=== PATIENT | female | born 1955 | race Caucasian/White ===

== ENCOUNTER → 2016-08-15 | Outpatient (CLI) | payer BC ==
--- OUTSIDE RECORDS SUMMARY | 2016-08-15 11:06 | XMS REPORT | Continuity of Care Document ---
Author [facility] Address Unknown Phone Unavailable Care Team Providers Care Outdoor Pursuits Instructor Name Role Phone Vikram Childs PCP [phone] Source Comments Some departments are not documenting in the electronic medical record. If you do not see the information that you expected, contact Release of Information in the Health Information Management department at [phone] for further assistance in locating additional records.[facility] Active Allergies and Adverse Reactions Not on File Current Medications Not on file Active Problems Problem Noted Date Pain in joint, lower leg 10/19/2007 Social History Tobacco Use Types Packs/Day Years Used Date Never Assessed Plan of Care Health Maintenance Due Date Last Done Comments Physical (Comprehensive) 1963 Exam Pertussis Vaccine 1967 Tetanus Vaccine 1973 Cervical Cancer Screening 1977 Breast Cancer Screening 1996 Colorectal Cancer 2006 Screening Influenza Vaccine 03/14/2016 Results from Last 3 Months Not on file
--- NOTE | 2016-08-15 16:40 | Diagnostic Imaging Report ---
Examination: DEXA scan. INDICATION: Osteopenia TECHNIQUE: Bone mineral density estimated based on dual energy radiography over the lumbar spine and femoral necks, was performed. FINDINGS: The lumbar spine T-score is -2.8. This is a 5.3% decreased density measurement compared to 08/06/2013 exam. The T score for the left femoral neck is 0.1 and on the right is -0.1. This is 3.6% decreased density measurement compared to 2014 exam. IMPRESSION: Osteoporosis. Dictated by: Dictated on workstation # [id number]
--- NOTE | 2016-08-15 17:17 | Diagnostic Imaging Report ---
Bilateral screening mammogram. The current study was also evaluated with a Computer Aided Detection (CAD) system. INDICATION: Screening. No current complaints stated on the questionnaire. COMPARISON: 06/26/2015. FINDINGS: The breasts are composed of heterogeneously dense parenchyma which may decrease mammographic sensitivity. There is a biopsy clip seen in the right breast. Stable somewhat nodular pattern of the parenchyma is seen with no developing mass, architectural distortion, or suspicious cluster of calcification. Allowing for technique and positional differences, no suspicious change is seen. IMPRESSION: Dense breasts with no definite change. ACR BI-RADS Category 2: Benign findings. Result letter will be mailed to the patient. Note: At least 10% of breast cancer is not imaged by mammography. Dictated by: Dictated on workstation # [id number]
== END ==
LOC: RAD 11:00
PROVIDERS: ATTEND Obstetrics & Gynecology
DX: Z12.31 Encounter for screening mammogram for malignant neoplasm of breast (principal); M81.0 Age-related osteoporosis without current pathological fracture
CPT/HCPCS: 77067; 77080

== ENCOUNTER → 2017-08-21 | Outpatient (CLI) | payer BC ==
--- NOTE | 2017-08-21 17:57 | Diagnostic Imaging Report ---
INDICATION: Screening mammogram. COMPARISON: 08/15/2016. EXAMINATION: Digital screening mammography was obtained of bilateral breasts with a Computer Aided Detection (CAD) system and three-dimensional tomosynthesis. FINDINGS: Breast tissue is heterogeneously dense but stable. There is no mass or suspicious calcification. There is a biopsy marker clip in the right breast. IMPRESSION: Stable screening mammogram. No malignancy. ACR BI-RADS Category 1: Negative. Result letter will be mailed to the patient. Note: At least 10% of breast cancer is not imaged by mammography. Dictated by: Dictated on workstation # [id number]
== END ==
LOC: RAD 09:20
PROVIDERS: ATTEND Obstetrics & Gynecology
DX: Z12.31 Encounter for screening mammogram for malignant neoplasm of breast (principal); M81.0 Age-related osteoporosis without current pathological fracture
CPT/HCPCS: 77067

== ENCOUNTER 2018-08-10 05:38 | Outpatient (CLI) | payer BC ==
[~2018-08-10] VITALS: Ht 158.8 cm; Wt 58.1 kg
[2018-08-10] MEDS ORDERED: RALO60TA12 PO (15:54)
[2018-08-10] MEDS ORDERED: MV-M1TAB57 PO (16:02)
[2018-08-10] MEDS ORDERED: OMG1KC PO (16:02)
[2018-08-10] MEDS ORDERED: ASCO1CAP4 PO (16:02)
[2018-08-10] MEDS ORDERED: GARL600T PO (16:02)
[2018-08-10] MEDS ORDERED: CALC-50 PO (16:02)
[2018-08-10] MEDS ORDERED: LACT1CAP39 PO (16:02)
== END 2018-08-10 16:02 | disposition home or self-care (01) ==
LOC: PREOP 05:38
PROVIDERS: ATTEND Surgery
DX: Z01.818 Encounter for other preprocedural examination (principal)

== ENCOUNTER 2018-08-17 07:10 | Day surgery (SDC) | payer BC ==
[~2018-08-17] VITALS: Ht 158.8 cm; Wt 58.1 kg
[~2018-08-17 07:10] MED LIST: ASCO1CAP4 PO; CALC-50 PO; GARL600T PO; LACT1CAP39 PO; MV-M1TAB57 PO; OMG1KC PO; RALO60TA12 PO
--- OUTSIDE RECORDS SUMMARY | 2018-08-17 07:14 | XMS REPORT | Clinical Summary ---
Author Author [facility] Organization [facility] Address Unknown Phone Unavailable Care Team Providers Care Senior Software Qa Engineer Name Role Phone Vikram Childs MD PCP Source Comments Some departments are not documenting in the electronic medical record. If you do not see the information that you expected, contact Release of Information in the Health Information Management department at [phone] for further assistance in locating additional records.[facility] Allergies Not on File Medications Not on file Active Problems Problem Noted Date Pain in joint, lower leg 10/19/2007 Social History Date Tobacco Use Types Packs/Day Years Used Never Assessed Sex Assigned at Date Recorded Not on file Industry Job Start Date Occupation Not on file Not on file Not on file Travel End Travel History Travel Start No recent travel history available. Last Filed Vital Signs Not on file Plan of Treatment Health Maintenance Due Date Last Done Comments HEPATITIS C SCREENING 1956 PHYSICAL (COMPREHENSIVE) 1963 EXAM HIV SCREENING 1971 DTAP/TDAP VACCINES (1 - 1974 Tdap) CERVICAL CANCER SCREENING 1986 BREAST CANCER SCREENING 1996 COLORECTAL CANCER 2006 SCREENING SHINGLES RECOMBINANT 2006 VACCINE (1 of 2) INFLUENZA VACCINE 02/11/2018 Results Not on filefrom Last 3 Months
--- OUTSIDE RECORDS SUMMARY | 2018-08-17 07:15 | XMS REPORT | CCD ---
Author Author Natasha Medrano MD, [facility] Address [address] [place] [address] Phone Care Team Providers Care Sales Inspector Name Role Phone Beverly Cheng PP Unavailable CCM Unavailable Summary Purpose Interface Exchange Insurance Providers Payer name Policy type / Coverage type Covered republican ID Effective Begin Date Effective End Date Blue Cross [facility] [id number] Unknown Unknown Family history Daughter Diagnosis Age At Onset No Known Diseases N/A Sister Diagnosis Age At Onset No Known Diseases N/A Father Diagnosis Age At Onset Hypertension Unknown Son Diagnosis Age At Onset No Known Diseases N/A Mother Diagnosis Age At Onset Alzheimer's Disease Unknown Hyperlipidemia Unknown Sister Diagnosis Age At Onset No Known Diseases N/A Sister Diagnosis Age At Onset No Known Diseases N/A Social History Social History Element Codes Description Effective Dates Marital status Unknown 01/31/2014 Employment Unknown Currently employed 01/31/[address]: 223881584 Never smoker 01/31/[address]: 655277304 Never drinks alcohol 01/31/2014 Has the patient ever used illegal drugs? 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 ICD-10: K59.1 Active 07/17/2018 Unknown Acute upper respiratory infection, unspecified ICD-9: 465.9 ICD-10: J06.9 Active 12/05/2016 Unknown Cough ICD-9: 786.2 ICD-10: R05 Active 12/05/2016 Unknown Other acute sinusitis ICD-9: 461.8 ICD-10: J01.80 Active 03/24/2016 Unknown Other allergic rhinitis ICD-9: 477.8 ICD-10: J30.89 Active 03/24/2016 Unknown Bitten or stung by nonvenomous insect and other nonvenomous arthropods, initial encounter ICD-9: 919.4 ICD-10: W57.XXXA Active 10/22/2015 Unknown Rash and other nonspecific skin eruption ICD-9: 782.1 ICD-10: R21 Active 10/22/2015 Unknown Bilateral primary osteoarthritis of knee ICD-9: 715.96 ICD-10: M17.0 Active 10/15/2015 Unknown Primary insomnia ICD-9 : 307.42 ICD-10: F51.01 Active 10/15/2015 Unknown osteopenia Unknown Active 01/31/2014 Unknown Osteoporosis ICD-9: 733.00 Active 01/31/2014 Unknown Right knee pain ICD-9 : 719.46 Active 01/31/2014 Unknown Problems Condition Codes Effective Dates Condition Status Hypothryroidism Unknown 07/23/2018 Active Hypothyroidism, unspecified ICD-9: 244.9 ICD-10: E03.9 07/23/2018 Active Functional diarrhea ICD-9: 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 ICD-10: K59.1 07/17/2018 Active Acute upper respiratory infection, unspecified ICD-9: 465.9 ICD-10: J06.9 12/05/2016 Active Cough ICD-9: 786.2 ICD-10: R05 12/05/2016 Active Other acute sinusitis ICD-9: 461.8 ICD-10: J01.80 03/24/2016 Active Other allergic rhinitis ICD-9: 477.8 ICD-10: J30.89 03/24/2016 Active Bitten or stung by nonvenomous insect and other nonvenomous arthropods, initial encounter ICD-9: 919.4 ICD-10: W57.XXXA 10/22/2015 Active Rash and other nonspecific skin eruption ICD-9: 782.1 ICD-10: R21 10/22/2015 Active Bilateral primary osteoarthritis of knee ICD-9: 715.96 ICD-10: M17.0 10/15/2015 Active Primary insomnia ICD-9 : 307.42 ICD-10: F51.01 10/15/2015 Active osteopenia Unknown 01/31/2014 Active Osteoporosis ICD-9: 733.00 01/31/2014 Active Right knee pain ICD-9 : 719.46 01/31/2014 Active Medications Medication Codes Instructions Start Date Stop Date Status Fill Instructions Zithromax Z-Eduard 250 mg tablet RxNorm: 640957 1 Tablet(s) PO UD 12/05/2016 12/09/2016 Inactive zpack Kenalog 40 mg/mL suspension for injection RxNorm: 4289045 1 Milliliter(s) Inj 12/05/2016 12/05/2016 Inactive Zithromax Z-Eduard 250 mg tablet RxNorm: 509106 1 Tablet(s) PO UD 03/25/2016 12/04/2016 Inactive Kenalog 40 mg/mL suspension for injection RxNorm: 0446010 Milliliter(s) Inj 03/25/2016 03/25/2016 Inactive doxycycline hyclate 100 mg tablet RxNorm: 117918 1 Tablet(s) PO BID 10/23/2015 11/01/2015 Inactive Voltaren 1 % topical gel RxNorm: 832564 4 Gram(s) TOP QID 10/1902/16/2016 Inactive trazodone 50 mg tablet RxNorm: 206611 1 Tablet(s) PO QHS 201511/14/2015 Inactive Voltaren 1 % topical gel RxNorm: 277639 4 Gram(s) TOP QID 10/1510/19/2015 Inactive Osteo Bi-Flex oral RxNorm: 7567773 oral No Start Date Active Symbicort 160 mcg-4.5 mcg/actuation HFA aerosol inhaler RxNorm: 0320543 1 INH as needed No Start Date Active trospium ER 60 mg capsule,extended release 24 hr RxNorm: 175058 1 Capsule(s) PO daily No Start Date Active Fish Oil 1,000 mg capsule RxNorm: 1400 Capsule(s) PO daily No Start Date Active calcium citrate-ergocalciferol (vitamin D2) 1,500 mg-200 unit tablet RxNorm: 9770825 2 Tablet(s) PO BID No Start Date Active garlic 1,000 mg capsule RxNorm: 629650 2 Capsule(s) PO daily No Start Date Active Cathy Allergy 180 mg tablet RxNorm: 756148 1 Tablet(s) PO daily No Start Date Active Estring 2 mg vaginal RxNorm: 994834 1 ring VAG q 3 month No Start Date Active melatonin 5 mg capsule RxNorm: 768966 3 Capsule(s) PO daily No Start Date 10/15/2015 Inactive Atelvia 35 mg tablet,delayed release RxNorm: 5908522 1 Tablet(s) PO QW No Start Date 10/15/2015 Inactive Medication Administered Medication Codes Instructions Start Date Status Kenalog 40 mg/mL suspension for injection RxNorm: 0911889 1Milliliter 12/05/2016 No longer Active Kenalog 40 mg/mL suspension for injection RxNorm: 5707471 Milliliter 03/25/2016 No longer Active Immunizations Vaccine Codes Date Status Influenza CVX: 141 06/01/2013 completed Assessments Condition Codes Effective Dates Hypothyroidism, unspecified ICD-10: E03.9 ICD-9: 244.9 07/23/2018 Functional diarrhea ICD-10: K59.1 ICD-9: 564.5 07/17/2018 Acute upper respiratory infection, unspecified ICD-10: J06.9 ICD-9: 465.9 12/05/2016 Cough ICD-10: R05 ICD-9: 786.2 12/05/2016 Other acute sinusitis ICD-10: J01.80 ICD-9: 461.8 03/25/2016 Other allergic rhinitis ICD-10: J30.89 ICD-9: 477.8 03/25/2016 Rash and other nonspecific skin eruption ICD-10: R21 ICD-9: 782.1 10/23/2015 Bitten or stung by nonvenomous insect and other nonvenomous arthropods, initial encounter ICD-10: W57.XXXA ICD-9: 919.4 10/23/2015 Primary insomnia ICD-10: F51.01 ICD-9: 307.42 10/16/2015 Bilateral primary osteoarthritis of knee ICD-10: M17.0 ICD-9: 715.96 10/16/2015 Right knee pain ICD-9: 719.46 01/31/2014 Osteoporosis ICD-9: 733.00 01/31/2014 Reason For Visit Reason For Visit Effective Dates Notes diarrhea 07/17/2018 hoarseness 12/05/2016 sinus congestion 03/25/2016 arthropod bite 10/23/2015 insomnia 10/16/2015 knee pain 01/31/2014 Results Observation Observation Code Item Item Code Result Date Cbc With Differential Ord2 WBC 4.10 K/ul 07/20/2018 Cbc With Differential Ord2 RBC 4.57 M/ul 07/20/2018 Cbc With Differential Ord2 HGB 13.4 g/dl 07/20/2018 Cbc With Differential Ord2 HCT 40.3 % 07/20/2018 Cbc With Differential Ord2 Neut% 51.4 % 07/20/2018 Cbc With Differential Ord2 MCV 88.2 fl 07/20/2018 Cbc With Differential Ord2 Lymph% 33.9 % 07/20/2018 Cbc With Differential Ord2 MCH 29.3 pg 07/20/2018 Cbc With Differential Ord2 Republic% 9.3 % 07/20/2018 Cbc With Differential Ord2 MCHC 33.3 pg 07/20/2018 Cbc With Differential Ord2 Eos% 4.4 % 07/20/2018 Cbc With Differential Ord2 PLT 229 K/ul 07/20/2018 Cbc With Differential Ord2 Baso% 1.0 % 07/20/2018 Cbc With Differential Ord2 RDW 12.9 % 07/20/2018 Cbc With Differential Ord2 Neut ABS# 2.11 K/ul 07/20/2018 Cbc With Differential Ord2 Lymph ABS# 1.39 K/ul 07/20/2018 Cbc With Differential Ord2 Republic ABS# 0.4 K/ul 07/20/2018 Cbc With Differential Ord2 Eos ABS# 0.2 K/ul 07/20/2018 Cbc With Differential Ord2 Baso ABS# 0.0 K/ul 07/20/2018 Tsh Ord6 TSH (3rd IS) 0.44 uIU/mL 07/20/2018 Comp Metabolic Yon063 NA 142 mEq/L 07/20/2018 Comp Metabolic Nmj546 K 4.1 mEq/L 07/20/2018 Comp Metabolic Ggz132 CL 106 mEq/L 07/20/2018 Comp Metabolic Htj614 CO2 29.0 mEq/L 07/20/2018 Comp Metabolic Pyn333 ANION GAP 11 07/20/2018 Comp Metabolic Pbd496 GLUCOSE 95 mg/dL 07/20/2018 Comp Metabolic Dqs556 Creat 0.7 mg/dL 07/20/2018 Comp Metabolic Zhf733 eGFR 89 ml/min/1.73m2 07/20/2018 Comp Metabolic Kwf526 BUN 18 mg/dL 07/20/2018 Comp Metabolic Rqj767 B/C Ratio 25.4 Ratio 07/20/2018 Comp Metabolic Icn917 CALCIUM 9.3 mg/dL 07/20/2018 Comp Metabolic Scz791 ALK PHOS 45 U/L 07/20/2018 Comp Metabolic Iel350 AST(SGOT) 18 U/L 07/20/2018 Comp Metabolic Skp882 ALT(SGPT) 13 U/L 07/20/2018 Comp Metabolic Gts075 BILI T 0.5 mg/dL 07/20/2018 Comp Metabolic Pyd218 ALBUMIN 4.1 g/dL 07/20/2018 Comp Metabolic Mqe907 TPRO 6.1 g/dL 07/20/2018 Comp Metabolic Xpe966 GLOB 2.0 g/dL 07/20/2018 Comp Metabolic Uij572 A/G Ratio 2.1 Ratio 07/20/2018 Comp Metabolic Ucc797 Osmo 285 mOsmo 07/20/2018 Lipid Ord30 CHOL 176 mg/dL 07/20/2018 Lipid Ord30 HDL 58.0 mg/dl 07/20/2018 Lipid Ord30 TRIG 56 mg/dL 07/20/2018 Lipid Ord30 LDL 107 mg/dL 07/20/2018 Lipid Ord30 C/HDL 3.0 Ratio 07/20/2018 Ehrlichia Chaffeensis Antibody Igg 631206 EHRLICHIA CHAFFEENSIS IGG <1:64 10/28/2015 Ehrlichia Chaffeensis Antibody Igm [id number] EHRLICHIA CHAFFEENSIS IGM < 1:16 10/28/2015 Lymes Disease Total Antibodies With Western Blot Reflex [id number] B. BURGDORFERI, IGG/IGM 0.08 LI 10/28/2015 Lymes Disease Total Antibodies With Western Blot Reflex [id number] 10/28/2015 [place] Spotted Fever Igg/Igm [id number] [place] SPOTTED FEVER IGM EIA . 10/27/2015 [place] Spotted Fever Igg/Igm 744474 RMSF, IGM 0.30 index 10/27/2015 [place] Spotted Fever Igg/Igm [id number] [place] SPOTTED FEVER IGG EIA FLEX . 10/27/2015 [place] Spotted Fever Igg/Igm 865938 RMSF, IGG SCREEN-FLEX Negative 10/27/2015 Review of Systems System Result Effective Dates Constitutional No recent illness 2018 Constitutional No anorexia 07/17/2018 Constitutional No night sweats 2018 Constitutional No chills 07/17/2018 Constitutional No diaphoresis 07/17/2018 Constitutional No fatigue 07/17/2018 Constitutional No fever 07/17/2018 Constitutional No insomnia 07/17/2018 Constitutional No malaise 07/17/2018 Constitutional No weight loss 07/17/2018 Constitutional No weight gain 07/17/2018 Psychiatric No anxiety 07/17/2018 Psychiatric No depression 07/17/2018 Endocrine No cold sensitivity 07/17/2018 Endocrine No hair loss 07/17/2018 Hematologic/Lymphatic No abnormal bleeding and bruising 07/17/2018 Neurologic No alteration of consciousness 07/17/2018 Dermatologic No rash 07/17/2018 Musculoskeletal joint complaint 2018 Genitourinary/Nephrology No dysuria 07/17 Gastrointestinal No abdominal pain 2018 Gastrointestinal No anorexia 07/17/2018 Gastrointestinal diarrhea 07/17/2018 Gastrointestinal No gas and bloating 10/2018 Gastrointestinal No gastroesophageal reflux 07/17/2018 Gastrointestinal No vomiting 07/17/2018 Gastrointestinal No nausea 07/17/2018 Respiratory No cough 07/17/2018 Cardiovascular No chest pain/pressure 10/2018 Ears/Nose/Throat/Neck No dizziness 2018 Ears/Nose/Throat/Neck No headache 2018 Eyes No eye discharge 07/17/2018 Eyes No eye erythema 07/17/2018 Constitutional recent illness 12/05/2016 Constitutional No anorexia 12/05/2016 Constitutional No night sweats 2016 Constitutional No chills 12/05/2016 Constitutional No diaphoresis 12/05/2016 Constitutional No fatigue 12/05/2016 Constitutional No fever 12/05/2016 Constitutional No insomnia 12/05/2016 Constitutional No malaise 12/05/2016 Constitutional No weight loss 12/05/2016 Constitutional No weight gain 12/05/2016 Eyes No eye discharge 12/05/2016 Eyes No eye erythema 12/05/2016 Ears/Nose/Throat/Neck No dizziness 2016 Ears/Nose/Throat/Neck No headache 2016 Ears/Nose/Throat/Neck nasal allergies Ears/Nose/Throat/Neck nasal discharge Ears/Nose/Throat/Neck No otalgia 2016 Ears/Nose/Throat/Neck No sinus congestion 12/05/2016 Ears/Nose/Throat/Neck hoarseness 2016 Cardiovascular No chest pain/pressure Respiratory productive sputum 12/05/2016 Respiratory cough 12/05/2016 Respiratory chest tightness 12/05/2016 Gastrointestinal No abdominal pain 2016 Gastrointestinal No constipation 2016 Gastrointestinal No diarrhea 12/05/2016 Genitourinary/Nephrology No dysuria 12/05 Musculoskeletal No joint complaint 2016 Dermatologic No rash 12/05/2016 Dermatologic No sores 12/05/2016 Neurologic No alteration of consciousness 12/05/2016 Constitutional No diaphoresis 03/25/2016 Constitutional No fever 03/25/2016 Eyes No eye discharge 03/25/2016 Eyes No eye erythema 03/25/2016 Ears/Nose/Throat/Neck nasal allergies 06/2016 Ears/Nose/Throat/Neck nasal discharge 06/2016 Cardiovascular No chest pain/pressure 06/2016 Cardiovascular No dyspnea 03/25/2016 Respiratory No productive sputum 2015 Respiratory cough 03/25/2016 Gastrointestinal No abdominal pain 2015 Gastrointestinal No constipation 2015 Gastrointestinal No diarrhea 03/25/2016 Musculoskeletal No joint complaint 2015 Neurologic No alteration of consciousness 03/25/2016 Dermatologic No rash 03/25/2016 Constitutional recent illness 03/25/2016 Constitutional No chills 03/25/2016 Ears/Nose/Throat/Neck sinus congestion Ears/Nose/Throat/Neck postnasal drip 06/2016 Gastrointestinal No nausea 03/25/2016 Gastrointestinal No vomiting 03/25/2016 Neurologic No mental status change 2015 Constitutional No chills 10/23/2015 Constitutional No diaphoresis 10/23/2015 Constitutional No fatigue 10/23/2015 Constitutional No fever 10/23/2015 Constitutional No malaise 10/23/2015 Eyes No eye discharge 10/23/2015 Eyes No eye erythema 10/23/2015 Cardiovascular No chest pain/pressure 05/2016 Cardiovascular No dyspnea 10/23/2015 Respiratory No productive sputum 2015 Respiratory No cough 10/23/2015 Gastrointestinal No abdominal pain 2015 Gastrointestinal No constipation 2015 Gastrointestinal No diarrhea 10/23/2015 Musculoskeletal No joint complaint 2015 Neurologic No alteration of consciousness 10/23/2015 Psychiatric anxiety 10/23/2015 Psychiatric depression 10/23/2015 Ears/Nose/Throat/Neck No nasal discharge 10/23/2015 Ears/Nose/Throat/Neck No nasal allergies 10/23/2015 Dermatologic rash 10/23/2015 Constitutional No recent illness 2015 Constitutional No anorexia 10/16/2015 Constitutional No chills 10/16/2015 Constitutional No night sweats 2015 Constitutional No diaphoresis 10/16/2015 Constitutional No fatigue 10/16/2015 Constitutional No fever 10/16/2015 Constitutional insomnia 10/16/2015 Constitutional No malaise 10/16/2015 Constitutional No weight loss 10/16/2015 Constitutional No weight gain 10/16/2015 Psychiatric anxiety 10/16/2015 Psychiatric depression 10/16/2015 Eyes No eye discharge 10/16/2015 Eyes No eye erythema 10/16/2015 Ears/Nose/Throat/Neck No dizziness 2015 Ears/Nose/Throat/Neck No headache 2015 Cardiovascular No chest pain/pressure 10/2015 Cardiovascular No dyspnea 10/16/2015 Respiratory No productive sputum 2015 Respiratory No cough 10/16/2015 Gastrointestinal No abdominal pain 2015 Gastrointestinal No constipation 2015 Gastrointestinal No diarrhea 10/16/2015 Genitourinary/Nephrology No dysuria 10/15 Musculoskeletal No joint complaint 2015 Dermatologic No rash 10/16/2015 Neurologic No alteration of consciousness 10/16/2015 Constitutional No recent illness 2013 Musculoskeletal joint complaint 2013 Musculoskeletal osteoporosis 01/31/2014 Musculoskeletal arthralgia(s) 01/31/2014 Constitutional No anorexia 01/31/2014 Constitutional No night sweats 2013 Constitutional No chills 01/31/2014 Constitutional No diaphoresis 01/31/2014 Constitutional No fatigue 01/31/2014 Constitutional No insomnia 01/31/2014 Constitutional No fever 01/31/2014 Constitutional No malaise 01/31/2014 Constitutional No weight loss 01/31/2014 Constitutional No weight gain 01/31/2014 Eyes No eye discharge 01/31/2014 Eyes No eye erythema 01/31/2014 Ears/Nose/Throat/Neck No dizziness 2013 Ears/Nose/Throat/Neck No headache 2013 Ears/Nose/Throat/Neck nasal allergies Cardiovascular No chest pain/pressure Cardiovascular No dyspnea 01/31/2014 Cardiovascular No edema 01/31/2014 Respiratory No productive sputum 2013 Respiratory No chest congestion 2013 Respiratory No cough 01/31/2014 Gastrointestinal No abdominal pain 2013 Gastrointestinal No constipation 2013 Gastrointestinal No diarrhea 01/31/2014 Genitourinary/Nephrology No dysuria 01/31 Dermatologic No rash 01/31/2014 Dermatologic No sores 01/31/2014 Dermatologic No mole change 01/31/2014 Neurologic No alteration of consciousness 01/31/2014 Psychiatric No anxiety 01/31/2014 Psychiatric No depression 01/31/2014 Hematologic/Lymphatic No abnormal ecchymoses 01/31/2014 Endocrine No dry or coarse skin 2013 Physical Exam Exam Name System Name Item Name Status Result Effective Dates Notes Full Exam - General 1994 Constitutional general appearance Overall: well developed 07/17/2018 None Full Exam - General 1994 Constitutional general appearance Overall: in no acute distress 07/17/2018 None Full Exam - General 1994 Constitutional general appearance Overall: well nourished 07/17/2018 None Full Exam - General 1994 Eyes conjunctiva /eyelids Overall: conjunctiva clear 07/17/2018 None Full Exam - General 1994 Eyes conjunctiva /eyelids Overall: cornea clear 07/17/2018 None Full Exam - General 1994 Eyes conjunctiva /eyelids Overall: eyelids normal 07/17/2018 None Full Exam - General 1994 Eyes pupils and irises Overall: pupils equal, round, reactive to light and accomodation 07/17/2018 None Full Exam - General 1994 Ears/Nose/Throat otoscopic exam Overall: external auditory canals clear 07/17/2018 None Full Exam - General 1994 Ears/Nose/Throat otoscopic exam Overall: tympanic membranes clear 07/17/2018 None Full Exam - General 1994 Ears/Nose/Throat oral cavity/pharynx/larynx Overall: oral mucosa clear 07/17/2018 None Full Exam - General 1995 Ears/Nose/Throat oral cavity/pharynx/larynx Overall: oropharyngeal mucosa clear 07/17/2018 None Full Exam - General 1994 Ears/Nose/Throat oral cavity/pharynx/larynx Overall: no masses 07/17/2018 None Full Exam - General 1994 Respiratory auscultation Overall: breath sounds clear bilaterally 07/17/2018 None Full Exam - General 1994 Respiratory respiratory effort/rhythm Overall: no retractions 07/17/2018 None Full Exam - General 1994 Respiratory respiratory effort/rhythm Overall: normal rate 07/17/2018 None Full Exam - General 1994 Cardiovascular extremities Overall: no clubbing 07/17/2018 None Full Exam - General 1994 Abdomen abdominal exam Overall: no tenderness 07/17/2018 None Full Exam - General 1994 Abdomen abdominal exam Overall: normal bowel sounds 07/17/2018 None Full Exam - General 1994 Integument inspection of skin Overall: no rash, lesions 07/17/2018 None Full Exam - General 1994 Neurologic deep tendon reflexes Overall: deep tendon reflexes intact 07/17/2018 None Full Exam - General 1994 Neurologic cranial nerves Overall: crainial nerves 2 - 12 grossly intact 07/17/2018 None Full Exam - General 1994 Psychiatric orientation/consciousness Overall: oriented to person, place and time 07/17/2018 None Full Exam - Cardiology Extremities digits and nails Overall: no clubbing 07/17/2018 None Full Exam - Cardiology Extremities digits and nails Overall: digits benign 07/17/2018 None Full Exam - General 1994 Constitutional general appearance Overall: well developed 12/05/2016 None Full Exam - General 1994 Constitutional general appearance Overall: in no acute distress 12/05/2016 None Full Exam - General 1994 Constitutional general appearance Overall: well nourished 12/05/2016 None Full Exam - General 1994 Eyes conjunctiva /eyelids Overall: conjunctiva clear 12/05/2016 None Full Exam - General 1994 Eyes conjunctiva /eyelids Overall: cornea clear 12/05/2016 None Full Exam - General 1994 Eyes conjunctiva /eyelids Overall: eyelids normal 12/05/2016 None Full Exam - General 1994 Eyes pupils and irises Overall: pupils equal, round, reactive to light and accomodation 12/05/2016 None Full Exam - General 1994 Ears/Nose/Throat otoscopic exam Overall: external auditory canals clear 12/05/2016 None Full Exam - General 1994 Ears/Nose/Throat otoscopic exam Tympanic membrane: air- fluid level 12/05/2016 None Full Exam - General 1994 Ears/Nose/Throat lips/teeth/gingiva Overall: benign lips 12/05/2016 None Full Exam - General 1994 Ears/Nose/Throat oral cavity/pharynx/larynx Overall: oral mucosa clear 12/05/2016 None Full Exam - General 1994 Ears/Nose/Throat oral cavity/pharynx/larynx Posterior Pharynx: clear post nasal drainage 12/05/2016 None Full Exam - General 1994 Respiratory auscultation Overall: breath sounds clear bilaterally 12/05/2016 None Full Exam - General 1994 Respiratory respiratory effort/rhythm Overall: no retractions 12/05/2016 None Full Exam - General 1994 Respiratory respiratory effort/rhythm Overall: normal rate 12/05/2016 None Full Exam - General 1994 Cardiovascular auscultation of heart Overall: regular rate 12/05/2016 None Full Exam - General 1994 Cardiovascular auscultation of heart Overall: normal heart sounds 12/05/2016 None Full Exam - General 1994 Lymphatic neck nodes Overall: anterior cervical chain benign 12/05/2016 None Full Exam - General 1994 Lymphatic neck nodes Overall: posterior cervical chain benign 12/05/2016 None Full Exam - General 1994 Musculoskeletal gait and station Overall: normal gait 12/05/2016 None Full Exam - General 1994 Musculoskeletal gait and station Overall: normal station 12/05/2016 None Full Exam - General 1994 Musculoskeletal head and neck Overall: head atraumatic 12/05/2016 None Full Exam - General 1994 Neurologic cranial nerves Overall: crainial nerves 2 - 12 grossly intact 12/05/2016 None Full Exam - General 1994 Psychiatric orientation/consciousness Overall: oriented to person, place and time 12/05/2016 None Full Exam - General 1994 Psychiatric mood and affect Overall: normal mood and affect 12/05/2016 None Full Exam - General 1994 Psychiatric appearance Overall: well-groomed, good eye contact 12/05/2016 None Full Exam - General 1994 Psychiatric speech Overall: normal quality, no aphasia 12/05/2016 None Full Exam - General 1994 Psychiatric speech Overall: normal quality, quantity, rate 12/05/2016 None Full Exam - General 1994 Constitutional general appearance Overall: well developed 03/25/2016 None Full Exam - General 1994 Constitutional general appearance Overall: in no acute distress 03/25/2016 None Full Exam - General 1994 Constitutional general appearance Overall: well nourished 03/25/2016 None Full Exam - General 1994 Eyes conjunctiva /eyelids Overall: conjunctiva clear 03/25/2016 None Full Exam - General 1994 Eyes conjunctiva /eyelids Overall: cornea clear 03/25/2016 None Full Exam - General 1994 Eyes conjunctiva /eyelids Overall: eyelids normal 03/25/2016 None Full Exam - General 1994 Eyes pupils and irises Overall: pupils equal, round, reactive to light and accomodation 03/25/2016 None Full Exam - General 1994 Ears/Nose/Throat lips/teeth/gingiva Overall: benign lips 03/25/2016 None Full Exam - General 1994 Ears/Nose/Throat oral cavity/pharynx/larynx Overall: oral mucosa clear 03/25/2016 None Full Exam - General 1994 Respiratory respiratory effort/rhythm Overall: no retractions 03/25/2016 None Full Exam - General 1994 Respiratory respiratory effort/rhythm Overall: normal rate 03/25/2016 None Full Exam - General 1994 Neurologic cranial nerves Overall: crainial nerves 2 - 12 grossly intact 03/25/2016 None Full Exam - General 1994 Psychiatric orientation/consciousness Overall: oriented to person, place and time 03/25/2016 None Full Exam - General 1994 Psychiatric mood and affect Overall: normal mood and affect 03/25/2016 None Full Exam - General 1994 Ears/Nose/Throat otoscopic exam Overall: external auditory canals clear 03/25/2016 None Full Exam - General 1994 Ears/Nose/Throat otoscopic exam Tympanic membrane: air- fluid level 03/25/2016 None Full Exam - General 1994 Ears/Nose/Throat oral cavity/pharynx/larynx Posterior Pharynx: clear post nasal drainage 03/25/2016 None Full Exam - General 1994 Ears/Nose/Throat internal nose Sinus tenderness: left maxillary 03/25/2016 None Full Exam - General 1994 Ears/Nose/Throat internal nose Sinus tenderness: right maxillary 03/25/2016 None Full Exam - General 1994 Respiratory auscultation Overall: breath sounds clear bilaterally 03/25/2016 None Full Exam - General 1994 Cardiovascular auscultation of heart Overall: regular rate 03/25/2016 None Full Exam - General 1994 Cardiovascular auscultation of heart Overall: normal heart sounds 03/25/2016 None Full Exam - General 1994 Lymphatic neck nodes Overall: anterior cervical chain benign 03/25/2016 None Full Exam - General 1994 Lymphatic neck nodes Overall: posterior cervical chain benign 03/25/2016 None Full Exam - General 1994 Musculoskeletal gait and station Overall: normal gait 03/25/2016 None Full Exam - General 1994 Musculoskeletal gait and station Overall: normal station 03/25/2016 None Full Exam - General 1994 Musculoskeletal head and neck Overall: head atraumatic 03/25/2016 None Full Exam - General 1994 Psychiatric appearance Overall: well-groomed, good eye contact 03/25/2016 None Full Exam - General 1994 Psychiatric speech Overall: normal quality, no aphasia 03/25/2016 None Full Exam - General 1994 Psychiatric speech Overall: normal quality, quantity, rate 03/25/2016 None Full Exam - General 1994 Constitutional general appearance Overall: well developed 10/23/2015 None Full Exam - General 1994 Constitutional general appearance Overall: in no acute distress 10/23/2015 None Full Exam - General 1994 Constitutional general appearance Overall: well nourished 10/23/2015 None Full Exam - General 1994 Eyes conjunctiva /eyelids Overall: conjunctiva clear 10/23/2015 None Full Exam - General 1994 Eyes conjunctiva /eyelids Overall: cornea clear 10/23/2015 None Full Exam - General 1994 Eyes conjunctiva /eyelids Overall: eyelids normal 10/23/2015 None Full Exam - General 1994 Eyes pupils and irises Overall: pupils equal, round, reactive to light and accomodation 10/23/2015 None Full Exam - General 1994 Ears/Nose/Throat oral cavity/pharynx/larynx Overall: oral mucosa clear 10/23/2015 None Full Exam - General 1994 Respiratory respiratory effort/rhythm Overall: no retractions 10/23/2015 None Full Exam - General 1994 Respiratory respiratory effort/rhythm Overall: normal rate 10/23/2015 None Full Exam - General 1994 Neurologic cranial nerves Overall: crainial nerves 2 - 12 grossly intact 10/23/2015 None Full Exam - General 1994 Psychiatric orientation/consciousness Overall: oriented to person, place and time 10/23/2015 None Full Exam - General 1994 Ears/Nose/Throat lips/teeth/gingiva Overall: benign lips 10/23/2015 None Full Exam - General 1994 Psychiatric mood and affect Overall: normal mood and affect 10/23/2015 None Full Exam - General 1994 Integument inspection of skin Location: left leg 10/23/2015 thigh Full Exam - General 1994 Integument inspection of skin Pigmentation: erythematous 10/23/2015 tick bite with surrounding bulls eye rash Full Exam - General 1994 Constitutional general appearance Overall: well developed 10/16/2015 None Full Exam - General 1994 Constitutional general appearance Overall: in no acute distress 10/16/2015 None Full Exam - General 1994 Constitutional general appearance Overall: well nourished 10/16/2015 None Full Exam - General 1994 Eyes conjunctiva /eyelids Overall: conjunctiva clear 10/16/2015 None Full Exam - General 1994 Eyes conjunctiva /eyelids Overall: cornea clear 10/16/2015 None Full Exam - General 1994 Eyes conjunctiva /eyelids Overall: eyelids normal 10/16/2015 None Full Exam - General 1994 Eyes pupils and irises Overall: pupils equal, round, reactive to light and accomodation 10/16/2015 None Full Exam - General 1994 Ears/Nose/Throat oral cavity/pharynx/larynx Overall: oral mucosa clear 10/16/2015 None Full Exam - General 1994 Ears/Nose/Throat oral cavity/pharynx/larynx Overall: oropharyngeal mucosa clear 10/16/2015 None Full Exam - General 1994 Ears/Nose/Throat oral cavity/pharynx/larynx Overall: no masses 10/16/2015 None Full Exam - General 1994 Respiratory auscultation Overall: breath sounds clear bilaterally 10/16/2015 None Full Exam - General 1994 Respiratory respiratory effort/rhythm Overall: no retractions 10/16/2015 None Full Exam - General 1994 Respiratory respiratory effort/rhythm Overall: normal rate 10/16/2015 None Full Exam - General 1994 Cardiovascular extremities Overall: no clubbing 10/16/2015 None Full Exam - General 1994 Neurologic deep tendon reflexes Overall: deep tendon reflexes intact 10/16/2015 None Full Exam - General 1994 Neurologic cranial nerves Overall: crainial nerves 2 - 12 grossly intact 10/16/2015 None Full Exam - General 1994 Psychiatric orientation/consciousness Overall: oriented to person, place and time 10/16/2015 None Full Exam - General 1994 Constitutional general appearance Overall: well developed 01/31/2014 None Full Exam - General 1994 Constitutional general appearance Overall: in no acute distress 01/31/2014 None Full Exam - General 1994 Constitutional general appearance Overall: well nourished 01/31/2014 None Full Exam - General 1994 Psychiatric orientation/consciousness Overall: oriented to person, place and time 01/31/2014 None Full Exam - General 1994 Neurologic deep tendon reflexes Overall: deep tendon reflexes intact 01/31/2014 None Full Exam - General 1994 Neurologic cranial nerves Overall: crainial nerves 2 - 12 grossly intact 01/31/2014 None Full Exam - General 1994 Eyes conjunctiva /eyelids Overall: conjunctiva clear 01/31/2014 None Full Exam - General 1994 Eyes conjunctiva /eyelids Overall: eyelids normal 01/31/2014 None Full Exam - General 1994 Eyes conjunctiva /eyelids Overall: cornea clear 01/31/2014 None Full Exam - General 1994 Eyes pupils and irises Overall: pupils equal, round, reactive to light and accomodation 01/31/2014 None Full Exam - General 1994 Integument inspection of skin Overall: no rash, lesions 01/31/2014 None Full Exam - General 1994 Musculoskeletal lower extremity Inspection - knee: swelling 01/31/2014 None Full Exam - General 1994 Musculoskeletal lower extremity Palpation - knee: small effusion 01/31/2014 None Full Exam - General 1994 Musculoskeletal lower extremity ROM - knee: pain with flexion 01/31/2014 None Full Exam - General 1994 Abdomen abdominal exam Overall: no tenderness 01/31/2014 None Full Exam - General 1994 Abdomen abdominal exam Overall: normal bowel sounds 01/31/2014 None Full Exam - General 1994 Cardiovascular extremities Overall: no clubbing 01/31/2014 None Full Exam - General 1994 Respiratory auscultation Overall: breath sounds clear bilaterally 01/31/2014 None Full Exam - General 1994 Respiratory respiratory effort/rhythm Overall: normal rate 01/31/2014 None Full Exam - General 1994 Respiratory respiratory effort/rhythm Overall: no retractions 01/31/2014 None Full Exam - General 1994 Ears/Nose/Throat otoscopic exam Overall: tympanic membranes clear 01/31/2014 None Full Exam - General 1994 Ears/Nose/Throat otoscopic exam Overall: external auditory canals clear 01/31/2014 None Full Exam - General 1994 Ears/Nose/Throat oral cavity/pharynx/larynx Overall: oropharyngeal mucosa clear 01/31/2014 None Full Exam - General 1994 Ears/Nose/Throat oral cavity/pharynx/larynx Overall: no masses 01/31/2014 None Full Exam - General 1994 Ears/Nose/Throat oral cavity/pharynx/larynx Overall: oral mucosa clear 01/31/2014 None Procedures Procedure Codes Date TRIAMCINOLONE ACET INJ NOS CPT-4: J3301 12/05/2016 TRIAMCINOLONE ACET INJ NOS CPT-4: J3301 03/25/2016 Vital Signs Date Vital 07/17/2018 Blood Pressure 1: 118/72 Code : 8480-6 BMI: 22.3 Code : 75996-2 Heart Rate 1 : 77 bpm Height: 5'4" SpO2: 97% Weight: 129 lbs 12/05/2016 Blood Pressure 1: 126/72 Code : 8480-6 BMI: 23.2 Code : 67262-5 Heart Rate 1 : 78 bpm Height: 5'4" SpO2: 98% Weight: 134 lbs 8 oz 03/25/2016 Blood Pressure 1: 118/62 Code : 8480-6 BMI: 23.5 Code : 94839-1 Heart Rate 1 : 75 bpm Height: 5'4" SpO2: 98% Weight: 136 lbs 10/23/2015 Blood Pressure 1: 120/72 Code : 8480-6 BMI: 23.8 Code : 81177-3 Heart Rate 1 : 76 bpm Height: 5'4" SpO2: 98% Weight: 138 lbs 10/16/2015 Blood Pressure 1: 110/62 Code : 8480-6 BMI: 23.7 Code : 11483-2 Heart Rate 1 : 82 bpm Height: 5'4" SpO2: 96% Weight: 137 lbs 01/31/2014 Blood Pressure 1: 104/70 Code : 8480-6 BMI: 23.7 Code : 83870-0 Heart Rate 1 : 72 bpm Height: 5'4" Weight: 137 lbs Functional Status No Functional Status data History of Present Illness Symptom Name Status Result Effective Date Notes Quality chronic 07/17 None Onset and Resolution gradual in onset 07/17/2018 None Onset of Symptom _ years ago 07/17/2018 None Frequency of Episodes 4-6 stools per day 07/17/2018 None Frequency of Episodes daily 07/17/2018 None Length of Episodes _ months 07/17/2018 None Timing of Episodes no specific time 07/17/2018 None Alleviating Factors antidiarrheal agent 07/17/2018 None Pertinent Findings fecal urgency 07/17/2018 None hoarseness Quality acute 12/05/2016 None hoarseness Onset and Resolution sudden in onset 12/05/2016 None hoarseness Onset of Symptom 2 days ago 12/05/2016 None hoarseness Pertinent Findings cough 12/05/2016 None hoarseness Pertinent Findings fever 12/05/2016 None hoarseness Limitation on Activities does not limit communication 12/05/2016 None hoarseness Frequency of Episodes increasing 12/05/2016 None hoarseness Triggers activity 12/05/2016 None sinus congestion Location on both sides 03/25/2016 None sinus congestion Quality constant 03/25/2016 None sinus congestion Quality fullness 03/25/2016 None sinus congestion Quality pressure 03/25/2016 None sinus congestion Onset and Resolution sudden in onset 03/25/2016 4 sinus congestion Onset of Symptom 4 days ago 03/25/2016 None sinus congestion Frequency of Episodes daily 03/25/2016 None sinus congestion Pertinent Findings cough 03/25/2016 None sinus congestion Pertinent Findings hoarseness 03/25/2016 None arthropod bite Location on the left leg 10/23/2015 None arthropod bite Onset of Symptom 2 days ago 10/23/2015 None arthropod bite Limitation on Activities does not limit activities 10/23/2015 None insomnia Quality difficulty falling asleep 10/16/2015 None insomnia Onset of Symptom 4-5 months ago 10/16/2015 None insomnia Pertinent Findings Denies dizziness 10/16/2015 None insomnia Pertinent Findings Denies dyspnea 10/16/2015 None insomnia Pertinent Findings Denies nausea 10/16/2015 None insomnia Onset and Resolution ongoing 10/16/2015 None insomnia Severity mild 10/16/2015 None insomnia Frequency of Episodes unchanged 10/16/2015 None insomnia Triggers no known associated factors 10/16/2015 None knee pain Location on the right 01/31/2014 None knee pain Quality sharp pain 01/31/[address] knee pain Quality dull pain 01/31/2014 all the time knee pain Severity moderate 01/31/2014 None knee pain Onset of Symptom 2-3 weeks ago 01/31/2014 None knee pain Frequency of Episodes increasing 01/31/2014 None knee pain Onset and Resolution gradual in onset 01/31/2014 None knee pain Limitation on Activities unable to perform any activities without pain 01/31/2014 None knee pain Significant Medical Conditions prior injury 01/31/2014 states her right knee has been bothering her, was swimming because she thought that would be good for it and pushed off the side of the pool and felt a "pop" knee pain Mechanism of injury twisting with a popping sensation 01/31/2014 None knee pain Alleviating Factors NSAID's 01/31/2014 aleve, little relief knee pain Pertinent Findings limping 01/31/2014 None knee pain Pertinent Findings swelling 01/31/2014 None knee pain Pertinent Findings pain with movement 01/31/2014 None Advance Directives No Advance Directive data Encounters Encounter Performer Location Codes Date ([id number]) 88073 EST. PATIENT, LEVEL III Diagnosis: Functional diarrhea[ICD10: K59.1] Natasha Cheng MD, [facility] CPT-4: 24259 07/17/2018 [id number]) 20188 EST. PATIENT, LEVEL III Diagnosis: Cough[ICD10: R05] Diagnosis: Acute upper respiratory infection, unspecified[ICD10: J06.9] Natasha Cheng MD, [facility] CPT-4: 04883 12/05/2016 [id number] EST. PATIENT, LEVEL IV Diagnosis: Other allergic rhinitis[ICD10: J30.89] Diagnosis: Other acute sinusitis[ICD10: J01.80] [facility] CPT-4: 64013 03/25/2016 09347 EST. PATIENT, LEVEL III Diagnosis: Bitten or stung by nonvenomous insect and other nonvenomous arthropods, initial encounter[ICD10: W57.XXXA] Diagnosis: Rash and other nonspecific skin eruption[ICD10: R21] Elizabeth Cheng MD, [facility] CPT-4: 35918 10/23/2015 [id number] 87154 EST. PATIENT, LEVEL III Diagnosis: Primary insomnia[ICD10: F51.01] Diagnosis: Bilateral primary osteoarthritis of knee[ICD10: M17.0] [facility] CPT-4: 42945 10/16/2015 Office outpatient new 30 minutes Diagnosis: Right knee pain[ICD9: 719.46] Diagnosis: Osteoporosis[ICD9: 733.00] [facility] CPT-4: 47645 01/31/2014 Plan of Care Planned Activity Notes Codes Status Date Patient Education: Patient Medication Summary Completed 07/23/2018 Care Plan: Free T4 Pending 07/23/2018 Visit Plan: Chronic diarrhea -recommend patient have labs - start probiotic daily and keep food diary -follow up in 3 weeks to re-evaluate - sooner if needed. Patient to get fasting labs on Friday- patient verbalized understanding of plan. 07/17/2018 Appointment: Natasha Medrano WPtel: [address] [place], [place] [phone] (30 min) Complex 07/17/2018 Patient Education: Patient Medication Summary Completed 07/17/2018 Patient Education: Diarrhea Completed 07/17/2018 Visit Plan: URI - Pt advised to increase fluids, vitamin C. Discussed natural and expected course of this diagnosis and need to alert me if symptoms do not follow expected course, or if any worse. RX sent to patient' s pharmacy. 12/05/2016 Appointment: Natasha Medrano [facility]el: [facility] [address] [phone] (15 min) Moderate 12/05/2016 Patient Education: Patient Medication Summary Completed 12/05/2016 Visit Plan: Allergies - chronic - recommended pt to use allergy medication as prescribed. Pt has been counseled as to the appropriate use of the medication. Pt to call if allergy symptoms are not controlled with the medication. If using nasal spray, instructions as follows: Nasal spray- use twice daily, one spray per nostril twice daily, after 30 minutes, rinse out nose with saline spray.. Use opposite hand per nostril to spray in the nasal steroid allergy spray. Sinusitis - Pt has acute infection - pain in face, maxillary region, Pt informed to use decongestant, RX given to patient, sinus rinses also recommended. Call if symptoms do not show improvement. 03/25/2016 Appointment: [phone] [id number] (30 min) Complex 03/25/2016 Patient Education: Patient Medication Summary Completed 03/25/2016 Visit Plan: Tick bite with rash - Pt states that she had a tick bite 2 days ago, Pt states that she became worried about it when she noticed it was red with a rash. Will check labs, will send RX. Pt is to notify clinic if symptoms do not improve, if they worsen, or with any concerns. 10/23/2015 Visit Plan: Tick bite with rash - Pt states that she had a tick bite 2 days ago, Pt states that she became worried about it when she noticed it was red with a rash. Will check labs, will send RX. Pt is to notify clinic if symptoms do not improve, if they worsen, or with any concerns. 10/23/2015 Visit Plan: Tick bite with rash - Pt states that she had a tick bite 2 days ago, Pt states that she became worried about it when she noticed it was red with a rash. Will check labs, will send RX. Pt is to notify clinic if symptoms do not improve, if they worsen, or with any concerns. 10/23/2015 Appointment: (15 min) Moderate 10/23/2015 Patient Education: Patient Medication Summary Completed 10/23/2015 Visit Plan: Insomnia - Pt has been advised to increase the light in the house during the day, and start dimming the lights during the evening hours. Pt has been advised to cut out caffeine after 5pm. Daytime napping worsens night time insomnia. RX for trazodone OA of knees-RX for voltaren gel QID 10/16/2015 Appointment: (30 min) Complex 10/16/2015 Patient Education: Patient Medication Summary Completed 10/16/2015 Visit Plan: Right knee pain-suspect tear of meniscus-appt with Dr Otero this week Osteoporosis-managed by Dr Pacheco-continue oral calcium with vitamin D-continue altevia-research other options such as reclast, forteo, prolia. 01/31/2014 Appointment: New Patient 01/31/2014 Patient Education: Patient Medication Summary Completed 01/31/2014 Instructions Comment KEEP FOOD LOG PROBIOTICS CHECK LABS Eliminate dairy x 2 weeks . Chronic diarrhea -recommend patient have labs -start probiotic daily and keep food diary -follow up in 3 weeks to re-evaluate -sooner if needed. Patient to get fasting labs on Friday- patient verbalized understanding of plan. . Tick bite with rash - Pt states that she had a tick bite 2 days ago, Pt states that she became worried about it when she noticed it was red with a rash. Will check labs, will send RX. Pt is to notify clinic if symptoms do not improve, if they worsen, or with any concerns. . Tick bite with rash - Pt states that she had a tick bite 2 days ago, Pt states that she became worried about it when she noticed it was red with a rash. Will check labs, will send RX. Pt is to notify clinic if symptoms do not improve, if they worsen, or with any concerns. . Tick bite with rash - Pt states that she had a tick bite 2 days ago, Pt states that she became worried about it when she noticed it was red with a rash. Will check labs, will send RX. Pt is to notify clinic if symptoms do not improve, if they worsen, or with any concerns. . Right knee pain-suspect tear of meniscus-appt with Dr Otero this week Osteoporosis-managed by Dr Pacheco-continue oral calcium with vitamin D-continue altevia-research other options such as reclast, forteo, prolia. trazodone 50mg 1/2 tab at bedtime for sleep Increase to a full pill if 1/2 tab not effective . Insomnia - Pt has been advised to increase the light in the house during the day, and start dimming the lights during the evening hours. Pt has been advised to cut out caffeine after 5pm. Daytime napping worsens night time insomnia. RX for trazodone OA of knees-RX for voltaren gel QID . Allergies - chronic - recommended pt to use allergy medication as prescribed. Pt has been counseled as to the appropriate use of the medication. Pt to call if allergy symptoms are not controlled with the medication. If using nasal spray, instructions as follows: Nasal spray- use twice daily, one spray per nostril twice daily, after 30 minutes, rinse out nose with saline spray.. Use opposite hand per nostril to spray in the nasal steroid allergy spray. Sinusitis - Pt has acute infection - pain in face, maxillary region, Pt informed to use decongestant, RX given to patient, sinus rinses also recommended. Call if symptoms do not show improvement. kenalog injection today zyrtec zpack if not better . URI - Pt advised to increase fluids, vitamin C. Discussed natural and expected course of this diagnosis and need to alert me if symptoms do not follow expected course, or if any worse. RX sent to patient's pharmacy.
--- OUTSIDE RECORDS SUMMARY | 2018-08-17 07:16 | XMS REPORT | Continuity of Care Document ---
Author Author [facility] Organization [facility] Address Unknown Phone Unavailable Allergies Active Description Code Type Severity Reaction Onset Reported/Identified Relationship to Patient Clinical Status Yes No Known Drug Allergies [id number] Drug Allergy Unknown N/A 08/10/2018 Medications There is no data. Problems Date Dx Coded Attending Type Code Diagnosis Diagnosed By 07/04/2014 KRISTA VASQUEZ DO Ot V76.12 06/26/2015 Ot V76.12 06/26/2015 KRISTA VASQUEZ DO Ot V76.12 06/26/2015 KRISTA VASQUEZ DO Ot 733.90 06/26/2015 KRISTA VASQUEZ DO Ot V82.81 06/26/2015 KRISTA VASQUEZ DO Ot V76.12 07/18/2015 KRISTA VASQUEZ DO Ot Z12.31 08/15/2016 Ot V76.12 OTH SCREEN MAMMO-MALIGN NEOPLASM OF [place] 08/15/2016 KRISTA VASQUEZ DO Ot V76.12 OTH SCREEN MAMMO-MALIGN NEOPLASM OF [place] 08/15/2016 KRISTA VASQUEZ DO Ot 733.90 BONE CARTILAGE DIS NOS 08/15/2016 KRISTA VASQUEZ DO Ot V82.81 SCREENING FOR OSTEOPOROSIS 08/15/2016 KRISTA VASQUEZ DO Ot V76.12 OTH SCREEN MAMMO-MALIGN NEOPLASM OF [place] 08/15/2016 KRISTA VAQSUEZ DO Ot Z12.31 ENCNTR SCREEN MAMMOGRAM FOR MALIGNANT NE 08/16/2016 KRISTA VASQUEZ DO Ot M81.0 AGE-RELATED OSTEOPOROSIS W/O CURRENT PAT 08/16/2016 KRISTA VASQUEZ DO Ot Z12.31 ENCNTR SCREEN MAMMOGRAM FOR MALIGNANT NE 08/28/2016 KRISTA VASQUEZ DO Ot M81.0 AGE-RELATED OSTEOPOROSIS W/O CURRENT PAT 08/28/2016 KRISTA VASQUEZ DO Ot Z12.31 ENCNTR SCREEN MAMMOGRAM FOR MALIGNANT NE 08/22/2017 KRISTA VASQUEZ DO Ot M81.0 AGE-RELATED OSTEOPOROSIS W/O CURRENT PAT 08/22/2017 KRISTA VASQUEZ DO Ot Z12.31 ENCNTR SCREEN MAMMOGRAM FOR MALIGNANT NE 09/03/2017 KRISTA VASQUEZ DO Ot M81.0 AGE-RELATED OSTEOPOROSIS W/O CURRENT PAT 09/03/2017 KRISTA VASQUEZ DO Ot Z12.31 ENCNTR SCREEN MAMMOGRAM FOR MALIGNANT NE 08/10/2018 FINA LESTER, NIRMALA Fishman Ot Z01.818 ENCOUNTER FOR OTHER PREPROCEDURAL EXAMIN Procedures There is no data. Results There is no data. Encounters ACCT No. Visit Date/Time Discharge Status Pt. Type Provider Facility Loc./Unit Complaint [id number] 08/10/2018 05:38:00 08/10/2018 16:02:00 DIS Outpatient NIRMALA HARDEN MD [facility] PREOP COLONOSCOPY [id number] 08/21/2017 09:20:00 08/21/2017 23:59:59 CLS Outpatient KRISTA VASQUEZ DO [facility] RAD OSTEOPOROSIS, SCREENING [id number] 08/15/2016 11:00:00 08/15/2016 23:59:59 CLS Outpatient KRISTA VASQUEZ DO [facility] RAD SCREENING,OSTEOPENIA [id number] 06/26/2015 09:44:00 06/26/2015 23:59:59 CLS Outpatient KRISTA VASQUEZ DO [facility] RAD SCREENING [id number] 06/15/2014 15:12:00 06/15/2014 23:59:59 CLS Outpatient KRISTA VASQUEZ DO [facility] RAD SCREENING [id number] 08/06/2013 09:17:00 08/06/2013 23:59:59 CLS Outpatient KRISTA VASQUEZ DO [facility] RAD OSTEOPORSIS [id number] 06/08/2013 06:58:00 06/08/2013 23:59:59 CLS Outpatient KRISTA VASQUEZ DO S [facility] RAD ROUTINE [id number] 08/17/2018 08:00:00 PEN Preadmit NIRMALA HARDEN MD [facility] ENDO DIARRHEA [id number] 05/15/2012 07:23:00 Document Registration [id number] 06/15/2014 15:13:29 ACT Document Registration 0000 12/18/2016 12:32:24 12/18/2016 23:59:59 [facility] Outpatient Beverly Cheng
--- OUTSIDE RECORDS SUMMARY | 2018-08-17 07:16 | XMS REPORT | CCD ---
Author Author Natasha Medrano MD, [facility] Address [address] [place] [address] Phone Care Team Providers Care Senior Engineering Manager Name Role Phone Beverly Cheng PP Unavailable CCM Unavailable Summary Purpose Interface Exchange Insurance Providers Payer name Policy type / Coverage type Covered libertarian ID Effective Begin Date Effective End Date Blue Cross [facility] [id number] Unknown Unknown Family history Daughter Diagnosis Age [...] Currently employed 01/31/[address]: 064091304 Never smoker 01/31/[address]: 728287583 Never drinks alcohol 01/31/2014 Has the patient [...] Codes Condition Status Onset Date Resolved Date Functional diarrhea ICD-9: 564.5 ICD-10: K59.1 Active [...] Problems Condition Codes Effective Dates Condition Status Functional diarrhea ICD-9: 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.5 ICD-10: K59.1 07/17/2018 [...] Instructions Zithromax Z-Eduard 250 mg tablet RxNorm: 140279 1 Tablet(s) PO UD 12/05/2016 12/09/2016 Inactive zpack Kenalog 40 mg/mL suspension for injection RxNorm: 1675943 1 Milliliter(s) Inj 12/05/2016 12/05/2016 Inactive Zithromax Z-Eduard 250 mg tablet RxNorm: 598165 1 Tablet(s) PO UD 03/25/2016 12/04/2016 Inactive Kenalog 40 mg/mL suspension for injection RxNorm: 3899697 Milliliter(s) Inj 03/25/2016 03/25/2016 Inactive doxycycline hyclate 100 mg tablet RxNorm: 400794 1 Tablet(s) PO BID 10/23/2015 11/01/2015 Inactive Voltaren 1 % topical gel RxNorm: 110123 4 Gram(s) TOP QID 10/1902/16/2016 Inactive trazodone 50 mg tablet RxNorm: 550080 1 Tablet(s) PO QHS 201511/14/2015 Inactive Voltaren 1 % topical gel RxNorm: 056160 4 Gram(s) TOP QID 10/1510/19/2015 Inactive Osteo Bi-Flex oral RxNorm: 4318865 oral No Start Date Active Symbicort 160 mcg-4.5 mcg/actuation HFA aerosol inhaler RxNorm: 3008774 1 INH as needed No Start Date Active trospium ER 60 mg capsule,extended release 24 hr RxNorm: 189424 1 Capsule(s) PO daily No Start Date Active Fish Oil 1,000 mg capsule RxNorm: 1400 Capsule(s) PO daily No Start Date Active calcium citrate-ergocalciferol (vitamin D2) 1,500 mg-200 unit tablet RxNorm: 7439365 2 Tablet(s) PO BID No Start Date Active garlic 1,000 mg capsule RxNorm: 953272 2 Capsule(s) PO daily No Start Date Active Cathy Allergy 180 mg tablet RxNorm: 267914 1 Tablet(s) PO daily No Start Date Active Estring 2 mg vaginal RxNorm: 917932 1 ring VAG q 3 month No Start Date Active melatonin 5 mg capsule RxNorm: 587276 3 Capsule(s) PO daily No Start Date 10/15/2015 Inactive Atelvia 35 mg tablet,delayed release RxNorm: 8289350 1 Tablet(s) PO QW No Start Date 10/15/2015 Inactive Medication Administered Medication Codes Instructions Start Date Status Kenalog 40 mg/mL suspension for injection RxNorm: 1470226 1Milliliter 12/05/2016 No longer Active Kenalog 40 mg/mL suspension for injection RxNorm: 7829220 Milliliter 03/25/2016 No longer Active Immunizations Vaccine Codes Date Status Influenza CVX: 141 06/01/2013 completed Assessments Condition Codes Effective Dates Functional diarrhea ICD-10: K59.1 ICD-9: 564.5 07/17/2018 [...] Observation Code Item Item Code Result Date Ehrlichia Chaffeensis Antibody Igg 019157 EHRLICHIA CHAFFEENSIS IGG <1:64 10/28/2015 Ehrlichia Chaffeensis Antibody Igm 902117 EHRLICHIA CHAFFEENSIS IGM < 1:16 10/28/2015 [place] Disease Total Antibodies With Western Blot Reflex 972591 B. BURGDORFERI, IGG/IGM 0.08 LI 10/28/2015 [place] Disease Total Antibodies With Western Blot Reflex [id number] 10/28/2015 [place] Spotted Fever Igg/Igm 711987 [place] SPOTTED FEVER IGM EIA . 10/27/2015 [place] Spotted Fever Igg/Igm 841912 RMSF, IGM 0.30 index 10/27/2015 [place] Spotted Fever Igg/Igm 443679 [place] SPOTTED FEVER IGG EIA FLEX . 10/27/2015 [place] Spotted Fever Igg/Igm 025953 RMSF, IGG SCREEN-FLEX Negative 10/27/2015 Review of [...] Code : 8480-6 BMI: 22.3 Code : 09389-2 Heart Rate 1 : 77 bpm Height: 5'4" SpO2: 97% Weight: 129 lbs 12/05/2016 Blood Pressure 1: 126/72 Code : 8480-6 BMI: 23.2 Code : 23621-7 Heart Rate 1 : 78 bpm Height: 5'4" SpO2: 98% Weight: 134 lbs 8 oz 03/25/2016 Blood Pressure 1: 118/62 Code : 8480-6 BMI: 23.5 Code : 10278-6 Heart Rate 1 : 75 bpm Height: 5'4" SpO2: 98% Weight: 136 lbs 10/23/2015 Blood Pressure 1: 120/72 Code : 8480-6 BMI: 23.8 Code : 18830-6 Heart Rate 1 : 76 bpm Height: 5'4" SpO2: 98% Weight: 138 lbs 10/16/2015 Blood Pressure 1: 110/62 Code : 8480-6 BMI: 23.7 Code : 38172-1 Heart Rate 1 : 82 bpm Height: 5'4" SpO2: 96% Weight: 137 lbs 01/31/2014 Blood Pressure 1: 104/70 Code : 8480-6 BMI: 23.7 Code : 39210-3 Heart Rate 1 : 72 bpm Height: [...] data Encounters Encounter Performer Location Codes Date () 60653 EST. PATIENT, LEVEL III Diagnosis: Functional diarrhea[ICD10: K59.1] Natasha Cheng MD, [facility] CPT-4: 41620 07/17/2018 ([id number]) 72409 EST. PATIENT, LEVEL III Diagnosis: Cough[ICD10: R05] Diagnosis: Acute upper respiratory infection, unspecified[ICD10: J06.9] Natasha Cheng MD, [facility] CPT-4: 33317 12/05/2016 83946 EST. PATIENT, LEVEL IV Diagnosis: Other allergic rhinitis[ICD10: J30.89] Diagnosis: Other acute sinusitis[ICD10: J01.80] Elizabeth Cheng MD, [facility] CPT-4: 65859 03/25/2016 85877 EST. PATIENT, LEVEL III Diagnosis: Bitten or stung by nonvenomous insect and other nonvenomous arthropods, initial encounter[ICD10: W57.XXXA] Diagnosis: Rash and other nonspecific skin eruption[ICD10: R21] [facility] CPT-4: 95342 10/23/2015 ([id number]) 54765 EST. PATIENT, LEVEL III Diagnosis: Primary insomnia[ICD10: F51.01] Diagnosis: Bilateral primary osteoarthritis of knee[ICD10: M17.0] [facility] CPT-4: 95508 10/16/2015 Office outpatient new 30 minutes Diagnosis: Right knee pain[ICD9: 719.46] Diagnosis: Osteoporosis[ICD9: 733.00] [facility] CPT-4: 52423 01/31/2014 Plan of Care Planned Activity Notes Codes Status Date Visit Plan: Chronic diarrhea -recommend patient have labs - start probiotic daily and keep food diary -follow up in 3 weeks to re-evaluate - sooner if needed. Patient to get fasting labs on Friday- patient verbalized understanding of plan. 07/17/2018 Patient Education: Patient Medication Summary Completed 07/17/2018 Patient Education: Diarrhea Completed 07/17/2018 Care Plan: Comp Metabolic Pending 07/17/2018 Care Plan: Cbc With Differential Pending 07/17/2018 Care Plan: Tsh Pending 07/17/2018 Care Plan: Lipid Pending 07/17/2018 Visit Plan: URI - Pt advised to increase fluids, vitamin C. Discussed natural and expected course of this diagnosis and need to alert me if symptoms do not follow expected course, or if any worse. RX sent to patient' s pharmacy. 12/05/2016 [facility] [phone] [phone] (15 min) Moderate 12/05/2016 Patient Education: Patient [...] show improvement. 03/25/2016 App[facility]ment: [facility] [phone] [phone] (30 min) Complex 03/25/2016 Patient Education: Patient [...]
--- OUTSIDE RECORDS SUMMARY | 2018-08-17 07:16 | XMS REPORT | CCD ---
Author Author Natasha Medrano MD, [facility] Address [address] [place] [address] Phone Care Team Providers Care Fish Cleaner Name Role Phone Beverly Cheng PP Unavailable CCM Unavailable Summary Purpose Interface Exchange Insurance Providers Payer name Policy type / Coverage type Covered democrat ID Effective Begin Date Effective End Date Blue Cross [facility] [id number] Unknown Unknown Family history Daughter Diagnosis Age [...] Currently employed 01/31/[address]: 575590716 Never smoker 01/31/[address]: 549893938 Never drinks alcohol 01/31/2014 Has the patient [...] Instructions Zithromax Z-Eduard 250 mg tablet RxNorm: 985858 1 Tablet(s) PO UD 12/05/2016 12/09/2016 Inactive zpack Kenalog 40 mg/mL suspension for injection RxNorm: 3338201 1 Milliliter(s) Inj 12/05/2016 12/05/2016 Inactive Zithromax Z-Eduard 250 mg tablet RxNorm: 851847 1 Tablet(s) PO UD 03/25/2016 12/04/2016 Inactive Kenalog 40 mg/mL suspension for injection RxNorm: 8399336 Milliliter(s) Inj 03/25/2016 03/25/2016 Inactive doxycycline hyclate 100 mg tablet RxNorm: 098702 1 Tablet(s) PO BID 10/23/2015 11/01/2015 Inactive Voltaren 1 % topical gel RxNorm: 197260 4 Gram(s) TOP QID 10/1902/16/2016 Inactive trazodone 50 mg tablet RxNorm: 401067 1 Tablet(s) PO QHS 201511/14/2015 Inactive Voltaren 1 % topical gel RxNorm: 868874 4 Gram(s) TOP QID 10/1510/19/2015 Inactive Osteo Bi-Flex oral RxNorm: 1057936 oral No Start Date Active Symbicort 160 mcg-4.5 mcg/actuation HFA aerosol inhaler RxNorm: 7799630 1 INH as needed No Start Date Active trospium ER 60 mg capsule,extended release 24 hr RxNorm: 140763 1 Capsule(s) PO daily No Start Date Active Fish Oil 1,000 mg capsule RxNorm: 1400 Capsule(s) PO daily No Start Date Active calcium citrate-ergocalciferol (vitamin D2) 1,500 mg-200 unit tablet RxNorm: 1498857 2 Tablet(s) PO BID No Start Date Active garlic 1,000 mg capsule RxNorm: 054660 2 Capsule(s) PO daily No Start Date Active Cathy Allergy 180 mg tablet RxNorm: 673227 1 Tablet(s) PO daily No Start Date Active Estring 2 mg vaginal RxNorm: 094211 1 ring VAG q 3 month No Start Date Active melatonin 5 mg capsule RxNorm: 478718 3 Capsule(s) PO daily No Start Date 10/15/2015 Inactive Atelvia 35 mg tablet,delayed release RxNorm: 1448901 1 Tablet(s) PO QW No Start Date 10/15/2015 Inactive Medication Administered Medication Codes Instructions Start Date Status Kenalog 40 mg/mL suspension for injection RxNorm: 1744301 1Milliliter 12/05/2016 No longer Active Kenalog 40 mg/mL suspension for injection RxNorm: 1091956 Milliliter 03/25/2016 No longer Active Immunizations Vaccine [...] Code Result Date Ehrlichia Chaffeensis Antibody Igg 952222 EHRLICHIA CHAFFEENSIS IGG <1:64 10/28/2015 Ehrlichia Chaffeensis Antibody Igm 723384 EHRLICHIA CHAFFEENSIS IGM < 1:16 10/28/2015 [place]ymes Disease Total Antibodies With Western Blot Reflex 848852 B. BURGDORFERI, IGG/IGM 0.08 LI 10/28/2015 [place] Disease Total Antibodies With Western Blot Reflex 026739 10/28/2015 [place] Spotted Fever Igg/Igm 830806 [place] SPOTTED FEVER IGM EIA . 10/27/2015 [place] Spotted Fever Igg/Igm 551223 RMSF, IGM 0.30 index 10/27/2015 [place] Spotted Fever Igg/Igm 143034 [place] SPOTTED FEVER IGG EIA FLEX . 10/27/2015 [place] Spotted Fever Igg/Igm 764407 RMSF, IGG SCREEN-FLEX Negative 10/27/2015 Review of [...] Code : 8480-6 BMI: 22.3 Code : 01195-3 Heart Rate 1 : 77 bpm Height: 5'4" SpO2: 97% Weight: 129 lbs 12/05/2016 Blood Pressure 1: 126/72 Code : 8480-6 BMI: 23.2 Code : 09965-8 Heart Rate 1 : 78 bpm Height: 5'4" SpO2: 98% Weight: 134 lbs 8 oz 03/25/2016 Blood Pressure 1: 118/62 Code : 8480-6 BMI: 23.5 Code : 92157-4 Heart Rate 1 : 75 bpm Height: 5'4" SpO2: 98% Weight: 136 lbs 10/23/2015 Blood Pressure 1: 120/72 Code : 8480-6 BMI: 23.8 Code : 18365-5 Heart Rate 1 : 76 bpm Height: 5'4" SpO2: 98% Weight: 138 lbs 10/16/2015 Blood Pressure 1: 110/62 Code : 8480-6 BMI: 23.7 Code : 30145-7 Heart Rate 1 : 82 bpm Height: 5'4" SpO2: 96% Weight: 137 lbs 01/31/2014 Blood Pressure 1: 104/70 Code : 8480-6 BMI: 23.7 Code : 07915-1 Heart Rate 1 : 72 bpm Height: [...] Encounters Encounter Performer Location Codes Date () 36193 EST. PATIENT, LEVEL III Diagnosis: Functional diarrhea[ICD10: K59.1] Natasha Cheng MD, [facility] CPT-4: 60632 07/17/2018 ([id number]) 24401 EST. PATIENT, LEVEL III Diagnosis: Cough[ICD10: R05] Diagnosis: Acute upper respiratory infection, unspecified[ICD10: J06.9] Natasha Cheng MD, [facility] CPT-4: 83743 12/05/2016 44135 EST. PATIENT, LEVEL IV Diagnosis: Other allergic rhinitis[ICD10: J30.89] Diagnosis: Other acute sinusitis[ICD10: J01.80] Elizabeth Cheng MD, [facility] CPT-4: 03585 03/25/2016 33717 EST. PATIENT, LEVEL III Diagnosis: Bitten or stung by nonvenomous insect and other nonvenomous arthropods, initial encounter[ICD10: W57.XXXA] Diagnosis: Rash and other nonspecific skin eruption[ICD10: R21] [facility] CPT-4: 02158 10/23/2015 ([id number]) 41709 EST. PATIENT, LEVEL III Diagnosis: Primary insomnia[ICD10: F51.01] Diagnosis: Bilateral primary osteoarthritis of knee[ICD10: M17.0] [facility] CPT-4: 48997 10/16/2015 Office outpatient new 30 minutes Diagnosis: Right knee pain[ICD9: 719.46] Diagnosis: Osteoporosis[ICD9: 733.00] [facility] CPT-4: 92873 01/31/2014 Plan of Care Planned Activity Notes [...] pharmacy. 12/05/2016 [facility]: [facility] [phone] [phone] (15 min) Moderate 12/05/2016 Patient Education: Patient [...] improvement. 03/25/2016 Appointment: [facility] [phone] [phone] (30 min) Complex 03/25/2016 Patient Education: Patient [...]
[2018-08-17] MEDS ORDERED: NS IV 500 ML 500 ML ONE (07:20)
[2018-08-17] MEDS ORDERED: fentaNYL INJECTION 100 MCG/2 ML AMP ONE (07:39)
[2018-08-17] MEDS ORDERED: MIDAZOLAM 2 MG/2 ML (VERSED) VIAL ONE ×3 (07:39)
[2018-08-17] MEDS ORDERED: NS IV 500 ML 500 ML IV PRN (07:49)
[2018-08-17 07:52] VITALS: BP 121/79
[2018-08-17] MEDS ORDERED: MIDAZOLAM 2 MG/2 ML (VERSED) VIAL IVP ONE (08:00)
[2018-08-17] MEDS ORDERED: fentaNYL INJECTION 100 MCG/2 ML AMP IVP ONE (08:00)
[2018-08-17 08:20] VITALS: BP 117/61
--- NOTE | 2018-08-17 08:46 | History & Physicial ---
History of Present Illness History of Present Illness Reason for visit/HPI to undergo colonoscopy to investigate chronic diarrhea. She reports a family history of colon cancer in her maternal grand father Date of Admission 08/17/18 Date Seen by a Provider: Aug 17, 2018 Time Seen by a Provider: 08:44 I consulted on this patient on 08/17/18 08:43 Attending Physician Nirmala Mijares MD Admitting Physician Beverly Cheng MD Consult Allergies and Home Medications Allergies Coded Allergies: No Known Drug Allergies (Unverified , 08/10/18) Home Medications Ascorbic Acid/Collagen Hydr 1 Each Capsule, 1 EACH PO DAILY, (Reported) Calcium Carbonate/Vitamin D3 1 Each Tablet, 1 EACH PO DAILY, (Reported) Garlic Extract 600 Mg Tablet, 600 MG PO DAILY, (Reported) Lactobacillus Rhamnosus GG 1 Each Capsule, 1 EACH PO DAILY, (Reported) Mv-Mn/Folic Acid/Calcium/Vit K 1 Each Tablet, 1 EACH PO DAILY, (Reported) [place] 3 Polyunsat Fatty Acids 1,000 Mg Cap, 1,000 MG PO DAILY, (Reported) Raloxifene HCl 60 Mg Tablet, 60 MG PO DAILY, (Reported) Patient Home Medication List Home Medication List Reviewed: Yes Past Ndemvls-Ulzfst-Rjyzhc Hx Patient Social History Marrital Status: Employed/Student: employed Alcohol Use: Denies Use Recreational Drug Use: No Smoking Status: Never a Smoker 2nd Hand Smoke Exposure: No Recent Foreign Travel: No Contact w/other who traveled: No Recent Hopitalizations: No Immunizations Up To Date Date of Influenza Vaccine: Apr 13, 2018 Seasonal Allergies Seasonal Allergies: No Surgeries Yes (foot sx, knee scope) Hysterectomy Respiratory No Cardiovascular No Neurological No Reproductive System EVENT REPRESENTATIVE History: Hysterectomy Genitourinary No Gastrointestinal Yes Chronic Diarrhea Musculoskeletal Yes Arthritis Endocrine History of Endocrine Disorders: No HEENT History of HEENT Disorders: No Cancer No Psychosocial History of Psychiatric Problem: No Integumentary History of Skin or Integumenta: No Blood Transfusions History of Blood Disorders: No Review of Systems Constitutional: no symptoms reported EENTM: no symptoms reported Respiratory: no symptoms reported Cardiovascular: no symptoms reported Gastrointestinal: see HPI Genitourinary: no symptoms reported Skin: no symptoms reported Psychiatric/Neurological: No Symptoms Reported Physical Exam Vital Signs Vital Signs - First Documented 08/17/18 07:52 Temp 97.4 Pulse 80 Resp 18 B/P (MAP) 121/79 (93) Pulse Ox 98 O2 Delivery Room Air Capillary Refill : Height, Weight, BMI Height: 5'2.50" Weight: 128lbs. 0.0oz. 58.410661qn; 23.0 BMI Method: General Appearance: No Apparent Distress Neck: Normal Inspection Respiratory: Lungs Clear Cardiovascular: Regular Rate, Rhythm Gastrointestinal: Non Tender, Soft Rectal: Deferred Neurologic/Psychiatric: Alert, Oriented x3 Skin: Warm/Dry Assessment/Plan Assessment and Plan lady with a long-term history of diarrhea. Family history of colon cancer. For colonoscopy. Details of the procedure, iatrogenic complications of post polypectomy bleeding, perforation etc. reviewed thoroughly. Seems to understand and is willing to proceed. Admission Diagnosis Admission Status: Other (Outpt Proc) NIRMALA MIJARES MD Aug 17, 2018 08:46
--- NOTE | 2018-08-17 08:47 | Conscious Sedation/ASA ---
Conscious Sedation Pre-Proced Time 08:46 ASA Score 2 For ASA 3 and 4: Consider anesthesia and medical clearance. Also, for patients with a history of failed moderate sedation consider anesthesia. Airway Lungs Heart ASA score ASA 1: a normal healthy patient ASA 2: a patient with a mild systemic disease (mid diabetes, controlled hypertension, obesity ASA 3: a patient with a severe systemic disease that limits activity (angina , COPD, prior Myocardial infarction) ASA 4: a patient with an incapacitating disease that is a constant threat to life (CHF, renal failure) ASA 5: a moribund patient not expected to survive 24 hrs. (ruptured aneurysm) ASA 6: a declared brain- patient whose organs are being harvested. For emergent operations, add the letter E after the classification Mallampati Classification Grade 1 Sedation Plan Discussed options with patient/fam The patient is an appropriate candidate to undergo the planned procedure, sedation, and anesthesia. The patient immediately re-assessed prior to indication. NIRMALA HARDEN MD Aug 17, 2018 08:47
[2018-08-17 08:50] VITALS: BP 123/68
--- NOTE | 2018-08-17 09:21 | Endo Procedure Record ---
Endo Procedure Report Date of Procedure Last Colonoscopy: Yes (2010) Aug 17, 2018 Surgeon (s) NIRMALA HARDEN MD Post Procedure/Op Diagnosis very few sigmoid diverticulae Procedure Performed colonoscopy to cecum Description of Procedure Anesthesia Type: Conscious Sedation Specimen(s) collected/removed None Description of the Procedure Indication for the procedure: This lady came in for colonoscopy to evaluate long -standing diarrhea. In addition, she reported a family history of colon cancer in her grandparent.. Informed consent was obtained after reviewing the procedure in detail. Description of the procedure: She was placed in left lateral position and her vital signs were monitored. Conscious sedation was achieved using Versed and fentanyl. Digital rectal examination was unremarkable. The colonoscope was then introduced into the rectum and advanced all the way to the cecum. The quality about preparation was excellent. The scope was then withdrawn slowly and the mucosa examined in a systematic fashion. Finding: Very few, scattered sigmoid diverticulae. She tolerated the procedure well and was taken back to the nursing area in a stable condition. Impression: Chronic diarrhea. No contributing factors. Very few diverticulae. Positive family history. Recommend repeating in 5 years. Copy Copies To 1: MICHELLE SAMAYOA MD,NIRMALA Fishman MD Aug 17, 2018 09:21
--- NOTE | 2018-08-17 09:22 | Discharge Inst-Simple/Standard ---
Discharge Inst-Standard Discharge Medications New, Converted or Re-Newed RX: Other Patient Instructions/Follow Up Plan of Care/Instructions/FU: repeat colonoscopy in 5 years Activity as Tolerated: Yes Discharge Diet: No Restrictions NIRMALA HARDEN MD Aug 17, 2018 09:22
[2018-08-17 10:00] VITALS: BP 123/68
== END 2018-08-17 10:00 | disposition home or self-care (01) ==
LOC: ENDO 07:10
PROVIDERS: ATTEND Surgery
DX: K52.9 Noninfective gastroenteritis and colitis, unspecified (principal); K57.30 Diverticulosis of large intestine without perforation or abscess without bleeding; Z80.0 Family history of malignant neoplasm of digestive organs

== ENCOUNTER → 2018-08-31 | Outpatient (CLI) | payer BC ==
--- NOTE | 2018-08-31 10:51 | Diagnostic Imaging Report ---
Indication: Routine screening. Comparison is made with prior mammogram from 08/21/2017 and 08/15/2016. 2-D and 3-D bilateral screening mammography was performed with CAD. Both breasts remain heterogeneously dense, limiting the sensitivity of mammography. There is a biopsy marker clip in the right breast, unchanged. Overall breast parenchymal pattern appears to be stable. No mass or malignant-appearing microcalcifications are seen. The axillae are unremarkable. Impression: BI-RADS category 2 No mammographic features suspicious for malignancy are identified. ACR BI-RADS Category 2: Benign findings. Result letter will be mailed to the patient. Note: At least 10% of breast cancer is not imaged by mammography. Dictated by: Dictated on workstation # [id number]
== END ==
LOC: RAD 09:26
PROVIDERS: ATTEND Nurse Practitioner Family
DX: Z12.31 Encounter for screening mammogram for malignant neoplasm of breast (principal)
CPT/HCPCS: 77067

== ENCOUNTER → 2018-09-22 | Outpatient (CLI) | payer BC ==
--- NOTE | 2018-09-22 09:36 | Diagnostic Imaging Report ---
INDICATION: Postmenopausal screening for osteoporosis. COMPARISON: 08/15/2016. FINDINGS: AP Spine L1-L4: [BMD (g/cm2): 0.832] [T-Score: -3.1] [Z-Score: -1.5] [BMD Previous: 0.868] [BMD % Change: -4.1] LT Hip Neck: [BMD (g/cm2): 0.977] [T-Score: -0.4] [Z-Score: 1.0] LT Hip Total: [BMD (g/cm2):1.002] [T-Score:0.0] [Z-Score: 1.1] [BMD Previous: 1.026] [BMD % Change: N/A] RT Hip Neck: [BMD (g/cm2):1.001] [T-Score:-0.3] [Z-Score:1.2] RT Hip Total: [BMD (g/cm2):0.988] [T-score:-0.2] [Z-Score:1.0] [BMD Previous:0.999] [BMD % Change:N/A] *Indicates significant change from prior examination based on 95% confidence level. World Health Organization criteria for BMD interpretation classify patients as Normal (T-score at or above -1.0), Osteopenic (T-score between -1.0 and -2.5) or Osteoporotic (T-score at or below -2.5). LIMITATIONS AND MODIFICATION: None. FRACTURE RISK (FRAX SCORE): The ten year probability of (%): Major Osteoporotic Fracture: [N/A] Hip Fracture: [N/A] IMPRESSION: 1. Osteoporosis. 2. Due to differences in equipment utilized between examinations, direct quantitative comparison is not possible to assess for interval change in bone mineral density. 3. See below National Osteoporosis Foundation guidelines on when to potentially initiate pharmacologic therapy. Based on the National Osteoporosis Foundation Guidelines, pharmacologic treatment should be initiated in any of the following, unless clinical conditions suggest otherwise: * Any patient with prior fragility fracture of the hip or vertebrae. A spine fracture indicates 5X risk for subsequent spine fracture and 2X risk for subsequent hip fracture. * Osteoporosis (T-score <-2.5). * Postmenopausal women and men age 50 and older with low bone mass/osteopenia (T-score between -1.0 and -2.5) by DXA and 10-year major osteoporotic fracture greater than 20% or a 10-year probability of hip fracture greater than 3%. These fracture risks are supplied above in the FRAX score, if applicable. * Clinician judgement and/or patient preferences may indicate treatment for people with 10-year fracture probabilities above or below these levels. Dictated by: Dictated on workstation # [id number]
== END ==
LOC: RAD 08:52
PROVIDERS: ATTEND Nurse Practitioner Family
DX: Z13.820 Encounter for screening for osteoporosis (principal); M81.0 Age-related osteoporosis without current pathological fracture; Z78.0 Asymptomatic menopausal state
CPT/HCPCS: 77080

== ENCOUNTER 2018-11-09 12:49 | Outpatient (CLI) | payer BC ==
[~2018-11-09] VITALS: Ht 158.8 cm; Wt 58.1 kg
[2018-11-09] MEDS ORDERED: DENOSUMAB 60 MG/1 ML (PROLIA) SQ SCH (13:00)
[2018-11-09 13:13] VITALS: BP 115/61
== END 2018-11-09 13:50 | disposition home or self-care (01) ==
LOC: SDC 12:49
PROVIDERS: ATTEND Nurse Practitioner Family
DX: M81.0 Age-related osteoporosis without current pathological fracture (principal)
CPT/HCPCS: 96372

== ENCOUNTER 2019-05-10 12:57 | Outpatient (CLI) | payer BC ==
[~2019-05-10] VITALS: Ht 157.5 cm; Wt 58.1 kg
[2019-05-10 13:03] VITALS: BP 103/68
[2019-05-10] MEDS ORDERED: DENOSUMAB 60 MG/1 ML (PROLIA) SQ ONE (13:15)
== END 2019-05-10 13:25 | disposition home or self-care (01) ==
LOC: SDC 12:57
PROVIDERS: ATTEND Nurse Practitioner Family
DX: M81.0 Age-related osteoporosis without current pathological fracture (principal)
CPT/HCPCS: 96372

== ENCOUNTER → 2019-09-23 | Outpatient (CLI) | payer BC ==
--- NOTE | 2019-09-23 13:35 | Diagnostic Imaging Report ---
INDICATION: Routine screening. Comparison is made with prior mammograms from 08/31/2018 and 08/21/2017. 2-D and 3-D bilateral screening mammography was performed. The current study was also evaluated with a Computer Aided Detection (CAD) system. 3-D tomosynthesis was also performed and reviewed. FINDINGS: Both breasts remain heterogeneously dense, limiting the sensitivity of mammography. Parenchymal pattern appears stable. No dominant mass or malignant-appearing microcalcifications are seen. Biopsy marker clip in the outer right breast is again noted. Axillae are unremarkable. IMPRESSION: No mammographic features suspicious for malignancy are identified. ACR BI-RADS Category 2: Benign findings. Result letter will be mailed to the patient. Note: At least 10% of breast cancer is not imaged by mammography. Dictated by: Dictated on workstation # [id number]
== END ==
LOC: RAD 09:01
PROVIDERS: ATTEND Nurse Practitioner Family
DX: Z12.31 Encounter for screening mammogram for malignant neoplasm of breast (principal)
CPT/HCPCS: 77067

== ENCOUNTER → 2019-11-08 | Outpatient (CLI) | payer BC ==
[~2019-11-08] MED LIST changes: +DENOSUMAB 60 MG/1 ML (PROLIA) SQ SCH
[2019-11-08 13:23] VITALS: BP 117/57
== END ==
LOC: SDC 13:02
PROVIDERS: ATTEND Nurse Practitioner Family
DX: M81.0 Age-related osteoporosis without current pathological fracture (principal)
CPT/HCPCS: 96372

== ENCOUNTER 2020-05-18 09:51 | Outpatient (CLI) | payer BC ==
[~2020-05-18] VITALS: Ht 160 cm
[~2020-05-18 09:51] MED LIST changes: -DENOSUMAB 60 MG/1 ML (PROLIA) SQ SCH
[2020-05-18] MEDS ORDERED: DENOSUMAB 60 MG/1 ML (PROLIA) SQ ONE (10:15)
[2020-05-18 10:19] VITALS: BP 115/65
== END 2020-05-18 10:20 | disposition home or self-care (01) ==
LOC: SDC 09:51
PROVIDERS: ATTEND Nurse Practitioner Family
DX: M81.0 Age-related osteoporosis without current pathological fracture (principal)
CPT/HCPCS: 96372